=== PATIENT | female | born 1955 | race African-American/Black ===

== ENCOUNTER 2020-02-10 04:58 | Inpatient (IN) | payer BC ==
[2020-02-10] VITALS (7 sets, daily range): BP systolic 146–190; BP diastolic 61–86
[~2020-02-10] VITALS: Ht 165.1 cm; Wt 170.2 kg
[2020-02-10 07:21] LABS: CHLORIDE 105 mEq/L (98-107)
[2020-02-10 07:32] LABS: BASOPHILS % 0.9 % (0.0-2.0); EOSINOPHILS % 5.2 % (0.0-5.0); HEMATOCRIT. 36.4 % (36.0-48.0); HEMOGLOBIN. 11.8 g/dL (12.0-16.0); LYMPHOCYTES % 30.8 % (20.0-50.0); MEAN CORPUSCULAR HEMOGLOBIN 30.5 pg (28.0-32.0); MEAN CORPUSCULAR VOLUME 94.1 fL (81.0-99.0); MEAN PLATELET VOLUME 7.9 fl (7.4-10.4); MONOCYTES % 8.9 % (2.0-8.0); NEUTROPHILS % 54.2 % (40.0-76.0); PLATELET 314 x1000/uL (130-400); RED BLOOD CELL COUNT 3.87 mill/uL (4.2-5.4); RED CELL DISTRIBUTION WIDTH 14.1 % (11.6-14.6)
[2020-02-10] MEDS ORDERED: HYDRALAZINE 20MG/ML VIAL IV ONE (08:45)
[2020-02-10] MEDS ORDERED: IOHEXOL-350 100 ML BOTTLE ONE (11:06)
[2020-02-10] MEDS ORDERED: CLONIDINE 0.1MG TABLET PO PRN (11:45)
[2020-02-10] MEDS ORDERED: MECLIZINE 25MG TABLET PO PRN (12:15)
[2020-02-10] MEDS ORDERED: ONDANSETRON HCL 4MG/2ML INJ IV PRN (12:15)
[2020-02-10 12:44] LABS: LDL CHOLESTEROL 88 mg/dL (5-100)
[2020-02-10 12:48] LABS: HDL CHOLESTEROL 61 mg/dL (40-59)
[2020-02-10] MEDS: LOSARTAN POTASSIUM 100 MG TABLET PO SCH (13:08)
[2020-02-10] MEDS: ASPIRIN 81MG TABLET PO SCH (13:08)
[2020-02-10] MEDS: FUROSEMIDE 40MG/4ML VIAL IVP SCH (14:57)
[2020-02-10] MEDS ORDERED: HYDRALAZINE HCL 100MG TABLET PO NR (17:15)
[2020-02-10] MEDS: AMLODIPINE 5MG TABLET PO SCH (20:45)
[2020-02-10] MEDS: ENOXAPARIN 40MG/0.4ML SYR SUBCUT SCH (20:46)
[2020-02-10] MEDS: HYDRALAZINE HCL 100MG TABLET PO SCH (21:49)
[2020-02-10] MEDS: ACETAMINOPHEN 325MG TABLET PO PRN (22:27)
[2020-02-10 22:52] LABS: CLARITY URINE CLEAR (CLEAR); COLOR URINE YELLOW (YELLOW); KETONES URINE NEGATIVE (NEGATIVE); LEUKOCYTE ESTERASE URINE 1+ (NEGATIVE); NITRITE URINE NEGATIVE (NEGATIVE); OCCULT BLOOD URINE 2+ (NEGATIVE); PH URINE 7.5 (4.5-8.0); PROTEIN URINE NEGATIVE (NEGATIVE); SPECIFIC GRAVITY URINE 1.021 (1.005-1.030); UROBILINOGEN URINE 0.2 E.U./dL (0.2-1.0)
[2020-02-10 23:01] LABS: *AMPHETAMINES SCREEN URINE NEGATIVE (NEGATIVE); *BARBITURATES SCREEN URINE NEGATIVE (NEGATIVE); *BENZODIAZEPINES SCREEN URINE NEGATIVE (NEGATIVE); *COCAINE SCREEN URINE NEGATIVE (NEGATIVE); METHADONE URINE SCREEN NEGATIVE (NEGATIVE); OPIATES URINE SCREEN NEGATIVE (NEGATIVE); PHENCYCLIDINE URINE SCREEN NEGATIVE (NEGATIVE)
[2020-02-10 23:02] LABS: CANNABINOID URINE SCREEN NEGATIVE (NEGATIVE)
[2020-02-11] VITALS (15 sets, daily range): BP systolic 123–171; BP diastolic 54–87
[2020-02-11] MEDS: HYDRALAZINE HCL 100MG TABLET PO SCH ×3 (05:58→21:06)
[2020-02-11 07:06] LABS: BASOPHILS % 1.1 % (0.0-2.0); EOSINOPHILS % 6.2 % (0.0-5.0); HEMATOCRIT. 35.5 % (36.0-48.0); HEMOGLOBIN. 11.7 g/dL (12.0-16.0); LYMPHOCYTES % 29.3 % (20.0-50.0); MEAN CORPUSCULAR HEMOGLOBIN 30.7 pg (28.0-32.0); MEAN CORPUSCULAR VOLUME 93.5 fL (81.0-99.0); MEAN PLATELET VOLUME 8.2 fl (7.4-10.4); MONOCYTES % 7.9 % (2.0-8.0); NEUTROPHILS % 55.5 % (40.0-76.0); PLATELET 298 x1000/uL (130-400); RED CELL DISTRIBUTION WIDTH 14.6 % (11.6-14.6)
[2020-02-11 07:28] LABS: CHLORIDE 103 mEq/L (98-107)
[2020-02-11] MEDS: FUROSEMIDE 40MG/4ML VIAL IVP SCH (08:29)
[2020-02-11] MEDS: ASPIRIN 81MG TABLET PO SCH (08:30)
[2020-02-11] MEDS: LOSARTAN POTASSIUM 100 MG TABLET PO SCH (08:30)
[2020-02-11] MEDS: ENOXAPARIN 40MG/0.4ML SYR SUBCUT SCH ×2 (08:30→21:06)
[2020-02-11] MEDS: AMLODIPINE 5MG TABLET PO SCH ×2 (08:31→21:06)
[2020-02-11] MEDS ORDERED: CLONIDINE 0.1MG TABLET PO PRN (10:45)
[2020-02-11] MEDS: ACETAMINOPHEN 325MG TABLET PO PRN (21:06)
[2020-02-12] VITALS (9 sets, daily range): BP systolic 106–157; BP diastolic 41–80
[2020-02-12] MEDS: HYDRALAZINE HCL 100MG TABLET PO SCH (05:35)
[2020-02-12] MEDS: ENOXAPARIN 40MG/0.4ML SYR SUBCUT SCH (08:27)
[2020-02-12] MEDS: ASPIRIN 81MG TABLET PO SCH (08:27)
[2020-02-12] MEDS: LOSARTAN POTASSIUM 100 MG TABLET PO SCH (08:27)
[2020-02-12] MEDS: FUROSEMIDE 40MG/4ML VIAL IVP SCH (08:27)
[2020-02-12] MEDS: AMLODIPINE 5MG TABLET PO SCH (08:28)
[2020-02-12] MEDS ORDERED: LOSA100T3 PO (10:17)
[2020-02-12] MEDS ORDERED: AMLO5TAB88 PO (10:17)
[2020-02-12] MEDS ORDERED: HYDR100T26 PO (10:17)
[2020-02-12] MEDS ORDERED: TRAM50TA3 MT (10:39)
== END 2020-02-12 12:32 | disposition home or self-care (01) | DRG 74 ==
LOC: ER 04:58 → EDBEDREQ 08:37 → EDBEDREQTM 08:37 → 3WST 11:04 → EDBEDREQTM 11:23 → EDBEDREQ 11:23 → ENRESERV 11:26
PROVIDERS: ADMIT Internal Medicine; ATTEND Internal Medicine
DX: G90.8 Other disorders of autonomic nervous system (principal); E44.0 Moderate protein-calorie malnutrition; Z68.44 Body mass index [BMI] 60.0-69.9, adult; I16.0 Hypertensive urgency; D64.9 Anemia, unspecified; I10 Essential (primary) hypertension; E66.9 Obesity, unspecified; I95.1 Orthostatic hypotension; E66.01 Morbid (severe) obesity due to excess calories; Z79.899 Other long term (current) drug therapy
CPT/HCPCS: 36415; 71045; 71275; 80048; 80053; 80061; 80305; 81003; 83880; 84443; 84484; 85025; 85379; 93005; 93306; 93970; 97162; 97530; 99285; J0360; J1650; J1940; Q9967